=== PATIENT | female | born 1980 | race Caucasian/White ===

== ENCOUNTER 2017-04-08 00:45 | Emergency (ER) | payer SELFPAY ==
[~2017-04-08 00:45] MED LIST: MULTI VITAMINS1 TAB PO
[2017-04-08 00:46] VITALS: BP 143/82; PULSE 82; TEMP 97.9
[2017-04-08] MEDS ORDERED: NEURONTIN600 MG/TAB PO (00:54)
[2017-04-08] MEDS ORDERED: ZANAFLEX CAPSULE2 MG PO (01:58)
[2017-04-08] MEDS ORDERED: NORCO 325 MG-51 TAB PO (01:58)
== END 2017-04-08 03:36 | disposition home or self-care (01) ==
LOC: COL.ER 00:45
DX: S33.9XXA Sprain of unspecified parts of lumbar spine and pelvis, initial encounter (principal); F17.210 Nicotine dependence, cigarettes, uncomplicated; Z90.49 Acquired absence of other specified parts of digestive tract; Z90.710 Acquired absence of both cervix and uterus; Z90.89 Acquired absence of other organs; X50.1XXA Overexertion from prolonged static or awkward postures, initial encounter
CPT/HCPCS: J1170; J1885